=== PATIENT | female | born 1975 | race Caucasian/White ===

== ENCOUNTER 2020-10-04 | Emergency (ER) | payer BC ==
[2020-10-04 17:39] LABS: URINE BILIRUBIN - DIPSTICK NEGATIVE (NEGATIVE); URINE BLOOD DIPSTICK NEGATIVE (NEGATIVE); URINE COLOR YELLOW; URINE GLUCOSE - DIPSTICK NEGATIVE (NEGATIVE); URINE KETONE NEGATIVE (NEGATIVE); URINE LEUK ESTERASE TRACE (NEGATIVE); URINE NITRITE - DIPSTICK NEGATIVE (Negative); URINE PROTEIN - DIPSTICK NEGATIVE (NEG-TRACE); URINE UROBILINOGEN - DIPSTICK 0.2 E.U./dL (0.2)
[2020-10-04 18:03] LABS: HEMATOCRIT 38.1 % (37.0-47.0); HEMOGLOBIN 12.8 g/dl (12.0-16.0); IMMATURE GRANULOCYTES 0.2 % (0.0-5.0); MEAN CELL VOLUME 98.2 fL CALC (80.0-100.0); MEAN CORPUSCULAR HGB CONC 33.6 g/dL CAL (32.0-36.0); NEUT# 4.1 thou/uL (2.00-7.15); RED BLOOD COUNT 3.88 mill/uL (4.20-5.60); RED CELL DISTRI WIDTH 12.6 % (11.5-15.5)
[2020-10-04] MEDS ORDERED: GABAPENTIN100 MG PO (18:08)
[2020-10-04] MEDS ORDERED: CYMBALTA20 MG PO (18:08)
[2020-10-04] MEDS ORDERED: XANAX1 MG PO (18:09)
[2020-10-04] MEDS ORDERED: LEVO-T25 MCG PO (18:10)
[2020-10-04 18:17] LABS: ALKALINE PHOSPHATASE 53 u/l (38-126); ANION GAP 15 (6-22 (CALC)); BILIRUBIN, TOTAL 0.7 mg/dL (0.0-1.4); BUN 13 mg/dL (7-17); BUN/CREATININE RATIO 18 (12-20 (CALC)); CARBON DIOXIDE 22 mmol/l (22-30); CHLORIDE 100 mmol/l (95-108); CREATININE 0.7 mg/dL (0.5-1.0); GFR > 60 ML/MIN (>=60 (CALC)); GFR FOR AFR.AMER. > 60 ML/MIN (>=60 (CALC)); LIPASE 123 u/l (23-300); POTASSIUM 4.1 mmol/l (3.5-5.1); SGOT/AST 28 u/l (14-36); SODIUM 134 mmol/l (137-146); TOTAL PROTEIN 8.1 g/dL (6.3-8.2)
== END 2020-10-04 20:57 | disposition home or self-care (01) | DRG 552 ==
PROVIDERS: Family Medicine
DX: M54.5 Low back pain (principal); M06.9 Rheumatoid arthritis, unspecified; F41.9 Anxiety disorder, unspecified; Z87.440 Personal history of urinary (tract) infections; Z87.442 Personal history of urinary calculi

== ENCOUNTER 2021-04-08 12:39 | Emergency (ER) | payer OTHER ==
[~2021-04-08] VITALS: Ht 162.6 cm; Wt 72.0 kg
[~2021-04-08 12:39] MED LIST: CYMBALTA20 MG PO; GABAPENTIN100 MG PO; LEVO-T25 MCG PO; XANAX1 MG PO
[2021-04-08] MEDS ORDERED: KEFLEX500 MG PO (13:27)
[2021-04-08] MEDS ORDERED: BACTRIM DS1 TAB PO (13:27)
[2021-04-08] MEDS ORDERED: BACTROBAN TOP (13:27)
[2021-04-08] MEDS ORDERED: TRAMADOL HYDROC50 M1 PO (13:27)
[2021-04-08 14:24] VITALS: BP 119/73
== END 2021-04-08 14:00 | disposition home or self-care (01) | DRG 603 ==
LOC: ED 12:39
DX: L01.00 Impetigo, unspecified (principal); M06.9 Rheumatoid arthritis, unspecified; F41.9 Anxiety disorder, unspecified; F17.210 Nicotine dependence, cigarettes, uncomplicated

== ENCOUNTER 2022-03-04 15:08 | Emergency (ER) | payer OTHER ==
[2022-03-04] VITALS (8 sets, daily range): BP systolic 80–117; BP diastolic 33–67
[~2022-03-04] VITALS: Ht 162.6 cm; Wt 85.9 kg
[~2022-03-04 15:08] MED LIST changes: +BACTRIM DS1 TAB PO; +BACTROBAN TOP; +KEFLEX500 MG PO; +TRAMADOL HYDROC50 M1 PO
== END 2022-03-04 17:36 | disposition home or self-care (01) | DRG 558 ==
LOC: ED 15:08
DX: M71.22 Synovial cyst of popliteal space [Baker], left knee (principal); M06.9 Rheumatoid arthritis, unspecified; F41.9 Anxiety disorder, unspecified